=== PATIENT | female | born 1985 | race Caucasian/White ===

== ENCOUNTER 2019-08-17 10:12 | Emergency (ER) | payer BC ==
[~2019-08-17] VITALS: Ht 157.5 cm; Wt 85.1 kg
--- NOTE | 2019-08-17 10:50 | NUR ---
Post void residual of 1400
--- NOTE | 2019-08-17 10:50 | NUR ---
Output of 1400 prior to leaving ER
--- NOTE | 2019-08-17 11:12 | Emergency Department Note ---
History of Present Illnes History of Present Illness Chief Complaint: Genitourinary History of Present Illness This is a 34 year old female c cc unable to urinate, patient has had uterine prolapse surgery 4 days ago, and has had the moon catheter removed yesterday . Onset (how long ago): day(s) (2) Location: suprapubic Quality: dull Radiation: Denies non-radiation, Denies back, Denies neck, Denies extremity, Denies abdomen, Denies periumbilical, Denies flank, Denies proximal, Denies distal, Denies other Severity: moderate Onset quality: gradual Duration (how long): day(s) (2) Timing of current episode: constant Progression: worsening Chronicity: new Context: Denies recent illness, Denies recent surgery, Denies recent immobilization, Denies recent travel, Denies trauma/injury, Denies new medications, Denies hx of DVT/PE, Denies non-compliance w/ medications, Denies other Relieving factors: none Exacerbating factors: none Associated symptoms: Reports denies other symptoms Treatments prior to arrival: none Past Medical/Family History Physician Review I have reviewed the patient's past medical and family history. Any updates have been documented here. Past Medical History Past Medical History: None Other Surgery: UTERINE PROLAPSE Social History Smoking Cessation: Never Smoker Alcohol Use: Occasional Family History Family history of heart diseas: No Review of Systems Review of Systems Constitutional: Reports no symptoms EENTM: Reports no symptoms Cardiovascular: Reports no symptoms Respiratory: Reports no symptoms Gastrointestinal: Reports no symptoms Genitourinary: Reports no symptoms, Reports as per HPI Musculoskeletal: Reports no symptoms Integumentary: Reports no symptoms Neurological: Reports no symptoms Psychological: Reports no symptoms Endocrine: Reports no symptoms Hematological/Lymphatic: Reports no symptoms Physical Exam Related Data Allergies: Coded Allergies: Sulfa (Sulfonamide Antibiotics) (Verified Allergy, Intermediate, rash/hives, 08/17/19) Vital signs reviewed: Yes Physical Exam CONSTITUTIONAL Constitutional: Present well-developed, Present well-nourished HENT HENT: Present normocephalic, Present atraumatic, Present oropharynx clear/moist, Present nose normal HENT L/R: Present left ext ear normal, Present right ext ear normal EYES Eyes: Reports PERRL, Reports conjunctivae normal NECK Neck: Present ROM normal PULMONARY Pulmonary: Present effort normal, Present breath sounds normal CARDIOVASCULAR Cardiovascular: Present regular rhythm, Present heart sounds normal, Present capillary refill normal, Present normal rate GASTROINTESTINAL Abdominal: Present soft, Present nontender (suprapubic), Present bowel sounds normal, Present tender GENITOURINARY Genitourinary: Present exam deferred SKIN Skin: Present warm, Present dry MUSCULOSKELETAL Musculoskeletal: Present ROM normal NEUROLOGICAL Neurological: Present alert, Present oriented x 3, Present no gross motor or sensory deficits PSYCHOLOGICAL Psychological: Present mood/affect normal, Present judgement normal Assessment & Plan Medical Decision Making MDM urinary retention uti Reassessment Reassessment time: 11:11 Reassessment Moon placed 1500 cc urine output Assessment & Plan Final Impression: (1) Acute urinary retention (2) Abdominal pain, suprapubic Depart Disposition: HOME, SELF-CARE DEANDRE ROJAS MD Aug 17, 2019 11:12
== END 2019-08-17 11:25 | disposition home or self-care (01) ==
LOC: FSED 10:12
DX: R33.9 Retention of urine, unspecified (principal); Z98.890 Other specified postprocedural states; R10.30 Lower abdominal pain, unspecified
CPT/HCPCS: 99282